=== PATIENT | male | born 1950 | race Caucasian/White ===

== ENCOUNTER 2019-03-26 16:17 | Emergency (ER) | payer MEDICARE, OTHER ==
[2019-03-26] MEDS ORDERED: Sodium Chloride 0.9% 10 ML Syringe FLUSH PRN (17:17)
[2019-03-26] MEDS ORDERED: Sodium Chloride 0.9% 2.5 ML Syringe FLUSH PRN (17:17)
--- NOTE | 2019-03-26 17:23 | EDM.PDOC ---
ED HPI GENERAL MEDICAL PROBLEM - General Chief Complaint: General Stated Complaint: NUMBNESS ON RIGHT CHEEK Time Seen by Provider: 03/26/19 17:09 - History of Present Illness INITIAL COMMENTS - FREE TEXT/NARRATIVE: HISTORY AND PHYSICAL: History of present illness: The patient is a 69-year-old male who presents with a 4-1/2 day history of intermittent swelling of the right side of his jaw and neck which comes and goes. He says that there is pain associated with that and that it randomly occurs and sometimes last up to 3 or 4 hours. Today it occurred but only lasted one hour. He says he has no systemic complaints of fever chills chest pain or shortness of breath no nausea or vomiting no speech changes and no difficulty speaking or swallowing. He says that the swelling only occurs at the angle of his jaw extending down into his anterior neck on the right and in front of his right ear. He says that he has no dental pain or dental issues that he is aware of. He says that there is no known trigger for it and today it only lasted 1 hour and he tells me that he did drink a lemon flavored soda while he was having the discomfort and the pain and swelling seem to go away much quicker than other events. He has no smoking history or history of chewing tobacco. Currently in the ED he is not having any swelling but still has some discomfort in the area. He has no ear pain. There are no other issues or systemic problems or complaints currently. Review of systems: As per history of present illness and below otherwise all systems reviewed and negative. Past medical history: As per history of present illness and as reviewed below otherwise noncontributory. Surgical history: As per history of present illness and as reviewed below otherwise noncontributory. Social history: No reported history of drug or alcohol abuse. Family history: As per history of present illness and as reviewed below otherwise noncontributory. Physical exam: General: Well-developed well-nourished man who is nontoxic and vital signs are noted by me. He is speaking easily and clearly without changes hoarse or muffled voice. HEENT: Atraumatic, normocephalic, pupils reactive, negative for conjunctival pallor or scleral icterus, mucous membranes moist, throat clear, neck supple, nontender, trachea midline. There is no visible evidence of any soft tissue swelling of the right side of his face. There is no cervical adenopathy or nuchal rigidity but there is some induration appreciated at the right soft tissue neck area near the insertion of the sternocleidomastoid but there is no bony pain and no erosive swelling of any of the salivary glands externally. The right TM has a good light reflex and there is no evidence of any external canal erythema and there is no mastoid tenderness or erythema. Intraorally he has no evidence of any gum swelling defects or abnormalities and no dental EKG or abnormalities are appreciated and the hard and soft palate as well as the posterior oropharynx is within normal limits. There is no tongue swelling and there is no swelling or fullness underneath the tongue. Lungs: Clear to auscultation, breath sounds equal bilaterally, chest nontender. Heart: S1S2, regular ate and rhythm no overt murmurs Abdomen: Soft, nondistended, nontender. Negative for masses or hepatosplenomegaly. NABS Pelvis: Deferred Genitourinary: Deferred. Rectal: Deferred. Extremities: Atraumatic, no pedal edema, full range of motion Neurovascular unremarkable. Neuro: Awake, alert, oriented. Cranial nerves II through XII unremarkable. Cerebellum unremarkable. Motor and sensory unremarkable throughout. Exam nonfocal. Diagnostics: CBC CMP soft tissue neck CT Therapeutics: IV placement At this point the patient is having minimal pain and no swelling. Patient was informed of all findings on the CT scan none of which explain his intermittent swelling and pain in the region of his right neck. He is aware of the incidental findings and the lab test results. I've advised him to talk on sour candies promote salivary movements and drainage and if this persists to occur to follow-up with his provider in the clinic and/or ENT specialist. I will give him referral for our ENT referral Dr. Mendes Impression: Episodic swelling and pain of right neck Definitive disposition and diagnosis as appropriate pending reevaluation and review of above. Right Jaw Pain Score (Numeric/FACES): 5 - Related Data Allergies Allergy/AdvReac Type Severity Reaction Status Date / Time No Known Allergies Allergy Verified 03/26/19 16:34 Home Meds: Home Meds Aspirin 81 mg PO DAILY 03/26/19 [History] atorvaSTATin [Lipitor] 50 mg PO DAILY 03/26/19 [History] hydroCHLOROthiazide [Hydrochlorothiazide] 25 mg PO DAILY 03/26/19 [History] Past Medical History Cardiovascular History: Reports: High Cholesterol, Hypertension Musculoskeletal History: Reports: None - Past Surgical History Cardiovascular Surgical History: Reports: Coronary Artery Bypass Musculoskeletal Surgical History: Reports: Joint Replacement Other Musculoskeletal Surgeries/Procedures:: Right Hip Social & Family History - Family History Family Medical History: Noncontributory - Tobacco Use Smoking Status *Q: Never Smoker Second Hand Smoke Exposure: No - Caffeine Use Caffeine Use: Reports: Coffee - Recreational Drug Use Recreational Drug Use: No ED ROS GENERAL - Review of Systems Review Of Systems: ROS reveals no pertinent complaints other than HPI. ED EXAM, GENERAL - Physical Exam Exam: See Below (See dictation) Course - Vital Signs Last Recorded V/S: Last Vital Signs Temp 36.5 C 03/26/19 16:36 Pulse 80 03/26/19 16:36 Resp 17 03/26/19 16:36 BP 169/85 H 03/26/19 16:36 Pulse Ox 96 03/26/19 16:36 - Orders/Labs/Meds Orders: Active Orders 24 hr Category Date Time Status Sodium Chloride 0.9% [Saline Flush] Med 03/26/19 17:17 Active 10 ml FLUSH ASDIRECTED PRN Sodium Chloride 0.9% [Saline Flush] Med 03/26/19 17:17 Active 2.5 ml FLUSH ASDIRECTED PRN Saline Lock Insert [OM.PC] Stat Oth 03/26/19 17:16 Ordered Medication Orders Sodium Chloride (Saline Flush) 10 ml FLUSH ASDIRECTED PRN PRN Reason: Keep Vein Open Sodium Chloride (Saline Flush) 2.5 ml FLUSH ASDIRECTED PRN PRN Reason: Keep Vein Open Labs: Laboratory Tests 03/26/19 03/26/19 Range/Units 17:32 17:32 WBC 8.23 (4.0-11.0) K/uL RBC 4.84 (4.50-5.90) M/uL Hgb 14.7 (13.0-17.0) g/dL Hct 44.4 (38.0-50.0) % MCV 91.7 (80.0-98.0) fL MCH 30.4 (27.0-32.0) pg MCHC 33.1 (31.0-37.0) g/dL RDW Std Deviation 46.3 (28.0-62.0) fl RDW Coeff of Kim 14 (11.0-15.0) % Plt Count 267 (150-400) K/uL MPV 10.00 (7.40-12.00) fL Neut % (Auto) 60.5 (48.0-80.0) % Lymph % (Auto) 30.1 (16.0-40.0) % Dubois % (Auto) 6.7 (0.0-15.0) % Eos % (Auto) 2.2 (0.0-7.0) % Baso % (Auto) 0.5 (0.0-1.5) % Neut # (Auto) 5.0 (1.4-5.7) K/uL Lymph # (Auto) 2.5 H (0.6-2.4) K/uL Dubois # (Auto) 0.6 (0.0-0.8) K/uL Eos # (Auto) 0.2 (0.0-0.7) K/uL Baso # (Auto) 0.0 (0.0-0.1) K/uL Nucleated RBC % 0.0 /100WBC Nucleated RBCs # 0 K/uL Sodium 143 (136-148) mmol/L Potassium 3.1 L (3.5-5.1) mmol/L Chloride 106 (98-107) mmol/L Carbon Dioxide 25.5 (21.0-32.0) mmol/L BUN 24 H (7.0-18.0) mg/dL Creatinine 0.9 (0.8-1.3) mg/dL Est Cr Clr Drug Dosing 90.06 mL/min Estimated GFR (MDRD) > 60.0 ml/min Glucose 94 (74-106) mg/dL Calcium 9.0 (8.5-10.1) mg/dL Total Bilirubin 0.4 (0.2-1.0) mg/dL AST 14 L (15-37) IU/L ALT 21 (14-63) IU/L Alkaline Phosphatase 54 (46-116) U/L Total Protein 7.0 (6.4-8.2) g/dL Albumin 3.7 (3.4-5.0) g/dL Globulin 3.3 (2.6-4.0) g/dL Albumin/Globulin Ratio 1.1 (0.9-1.6) Meds: Medications Generic Name Dose Route Start Last Admin Trade Name Freq PRN Reason Stop Dose Admin Sodium Chloride 10 ml 03/26/19 17:17 Saline Flush FLUSH ASDIRECTED PRN Keep Vein Open Sodium Chloride 2.5 ml 03/26/19 17:17 Saline Flush FLUSH ASDIRECTED PRN Keep Vein Open Discontinued Medications Generic Name Dose Route Start Last Admin Trade Name Freq PRN Reason Stop Dose Admin Iopamidol 80 ml 03/26/19 18:30 03/26/19 18:30 Isovue Multipack-370 (76%) IVPUSH 03/26/19 18:31 80 ml ONETIME STA Administration Departure - Departure Time of Disposition: 19:09 Disposition: Home, Self-Care 01 Condition: Good Clinical Impression: History of neck swelling - Discharge Information Referrals: PCP,None [Primary Care Provider] - Forms: ED Department Discharge Additional Instructions: The following information is given to patients seen in the emergency department who are being discharged to home. This information is to outline your options for follow-up care. We provide all patients seen in our emergency department with a follow-up referral. The need for follow-up, as well as the timing and circumstances, are variable depending upon the specifics of your emergency department visit. If you don't have a primary care physician on staff, we will provide you with a referral. We always advise you to contact your personal physician following an emergency department visit to inform them of the circumstance of the visit and for follow-up with them and/or the need for any referrals to a consulting specialist. The emergency department will also refer you to a specialist when appropriate. This referral assures that you have the opportunity for followup care with a specialist. All of these measure are taken in an effort to provide you with optimal care, which includes your followup. Under all circumstances we always encourage you to contact your private physician who remains a resource for coordinating your care. When calling for followup care, please make the office aware that this follow-up is from your recent emergency room visit. If for any reason you are refused follow-up, please contact the [facility] emergency department at and ask to speak to the emergency department charge nurse. [facility] Primary care- Internal Medicine [facility] [address] [place] [address] Continue to monitor these episodes and follow-up with a provider in the clinic or your provider for further care and evaluation. You can also follow up with an ENT specialist and had given you information about Dr. Mendes who we refer patients to. Return to ER as needed and as discussed. Suck on sour candy to promote salivary drainage as we discussed. - My Orders Last 24 Hours: My Active Orders 03/26/19 17:16 Saline Lock Insert [OM.PC] Stat 03/26/19 17:17 Sodium Chloride 0.9% [Saline Flush] 10 ml FLUSH ASDIRECTED PRN Sodium Chloride 0.9% [Saline Flush] 2.5 ml FLUSH ASDIRECTED PRN - Assessment/Plan Last 24 Hours: My Active Orders 03/26/19 17:16 Saline Lock Insert [OM.PC] Stat 03/26/19 17:17 Sodium Chloride 0.9% [Saline Flush] 10 ml FLUSH ASDIRECTED PRN Sodium Chloride 0.9% [Saline Flush] 2.5 ml FLUSH ASDIRECTED PRN
[2019-03-26 17:51] LABS: BLOOD UREA NITROGEN,BUN 24 mg/dL (7.0-18.0); CARBON DIOXIDE,CO2 25.5 mmol/L (21.0-32.0); CHLORIDE,CL 106 mmol/L (98-107); GLUCOSE RANDOM 94 mg/dL (74-106); POTASSIUM,K 3.1 mmol/L (3.5-5.1); SODIUM,NA 143 mmol/L (136-148)
[2019-03-26] MEDS ORDERED: Iopamidol 755 MG/ML 500 ML Multipack Bottle IVPUSH STA (18:30)
--- NOTE | 2019-03-26 19:02 | CT ---
INDICATION: Intermittent right neck pain and swelling. Also numbness in the right cheek. COMPARISON: None available TECHNIQUE: CT examination of the neck is performed using spiral technique during the uneventful intravenous administration of 100 cc of 370. 3 mm thick axial sections were made along with coronal and sagittal sections. Please note that all CT scans at this facility use dose modulation, iterative reconstruction, and/or weight-based dosing when appropriate to reduce radiation dose to as low as reasonably achievable. FINDINGS: There is no sign of cervical mass or adenopathy on today`s study. The airway structures are normal in appearance. The salivary glands are normal in appearance. The visualized posterior fossa, mastoids, skull base, and orbits are normal in appearance. There is prominent mucosal thickening in the inferior right maxillary sinus, with changes of medial antrostomy. The findings are that of prominent chronic sinusitis. There is minimal calcification of the right carotid bifurcation, with a small calcific plaque located along the posterior wall of the proximal right internal carotid artery. This results in no stenosis using NASCET criteria. On the left, there is minimal calcification of the proximal external carotid artery. There is mild noncalcified plaque along the posterior wall of the proximal left internal carotid artery without stenosis using NASCET criteria. The rest of the great vessels are otherwise unremarkable. The thyroid gland is normal in appearance. The visualized upper chest is clear. The visualized upper mediastinum is normal in appearance. There is moderate C6-7 disc degenerative disease. There is moderate bilateral foraminal stenosis from uncovertebral joint hypertrophy. IMPRESSION: Nothing seen to explain the patient`s right neck pain or swelling. Moderate chronic right maxillary sinusitis with changes of medial antrostomy. Moderate C6-7 disc degenerative disease with moderate bilateral foraminal stenosis. Please note that all CT scans at this facility use dose modulation, iterative reconstruction, and/or weight-based dosing when appropriate to reduce radiation dose to as low as reasonably achievable. Dictated by Javed Senior MD @ Mar 26 2019 6:50PM Signed by Dr. Javed Senior @ Mar 26 2019 7:00PM
== END 2019-03-26 19:25 | disposition home or self-care (01) ==
LOC: MW.ED 16:17
DX: R22.1 Localized swelling, mass and lump, neck (principal); M54.2 Cervicalgia; I10 Essential (primary) hypertension; Z79.82 Long term (current) use of aspirin; Z79.84 Long term (current) use of oral hypoglycemic drugs
CPT/HCPCS: 36415; 70491; 80053; 85025; 99284; Q9967; 99283